=== PATIENT | male | born 1970 | race Caucasian/White ===

== ENCOUNTER 2016-06-18 08:41 | Emergency (ER) | payer SELFPAY ==
[2016-06-18 08:49] VITALS: RESP 18
[2016-06-18] MEDS ORDERED: KETOROLAC 30 MG/ML 1 ML VIAL IVP STA (09:16)
[2016-06-18] MEDS ORDERED: HYDROmorphone 1 MG/ML 1 ML SYRINGE IVP STA (09:16)
--- NOTE | 2016-06-18 09:20 | ED ---
General Adult HPI - General Chief complaint: Extremity Problem,Nontraumatic Stated complaint: Left Foot Pain Time Seen by Provider: 06/18/16 09:12 Source: patient, RN notes reviewed Mode of arrival: EMS Limitations: no limitations - History of Present Illness Initial comments: Patient for 45-year-old male who presents emergency room today by EMS, with chief complaint of increased pain to the left ankle and left foot times one day. He does admit that he started feeling some discomfort in the left ankle and foot yesterday. States greatly increased this morning and was unable to bear weight and ambulate due to the pain. Did not take any pain medicine for this. States never had similar symptoms the past. Denies any history of trauma. Denies any history of gout. Denies any other complaints associated symptoms. Patient denies any recent fever, chills, shortness of breath, chest pain, back pain, abdominal pain, nausea or vomiting, numbness or tingling, dysuria or hematuria, constipation or diarrhea, headaches or visual changes, or any other complaints. - Related Data Previous Rx's Medication Instructions Recorded Hydrocodone/Acetaminophen [Hana 1 each PO Q6HR PRN #15 tab 06/18/16 5-325] Ibuprofen [Motrin] 800 mg PO Q6HR PRN #30 tab 06/18/16 amLODIPine BESYLATE [Norvasc] 5 mg PO DAILY #15 tablet 06/18/16 methylPREDNISolone Dose Pack 4 mg PO DIRECTED #21 package 06/18/16 [Medrol Dose Pack] Allergies Allergy/AdvReac Type Severity Reaction Status Date / Time pistachio nut Allergy Unknown Verified 06/18/16 08:49 Review of Systems ROS Statement: Those systems with pertinent positive or pertinent negative responses have been documented in the HPI. ROS Other: All systems not noted in ROS Statement are negative. Past Medical History Past Medical History: No Reported History History of Any Multi-Drug Resistant Organisms: None Reported Past Surgical History: Orthopedic Surgery Past Psychological History: No Psychological Hx Reported Smoking Status: Current every day smoker Past Alcohol Use History: Occasional Past Drug Use History: None Reported General Exam - General Exam Comments Initial Comments: General: The patient is awake and alert, in no distress, and does not appear acutely ill. Neck: The neck is supple, there is no tenderness or JVD. Cardiovascular: There is a regular rate and rhythm. No murmur, rub or gallop is appreciated. Respiratory: Lungs are clear to auscultation, respirations are non-labored, breath sounds are equal. No wheezes, stridor, rales, or rhonchi. Musculoskeletal: Mild swelling to left ankle area. No redness no erythema no lymphangitic streaking. Patient does have tenderness over the both medial and lateral malleolus. Worse with any movements of plantar or dorsiflexion. Tender palpation over the MTP joint #1. Tender with passive flexion. Sensations are intact with pulses equal bilaterally 2+. Neurological: A&O x 3. CN II-XII intact, There are no obvious motor or sensory deficits. Coordination appears grossly intact. Speech is normal. Skin: Skin is warm and dry and no rashes or lesions are noted. Psychiatric: Normal mood and affect. Limitations: no limitations Course Vital Signs 06/18/16 08:45 Temperature 97.6 F Pulse Rate 74 Respiratory 18 Rate Blood Pressure 174/107 O2 Sat by Pulse 98 Oximetry Medical Decision Making - Medical Decision Making Patient's x-ray reviewed shows no acute fracture dislocation. Results were discussed with patient. Patient's labs been reviewed uric acid 7.7. White count 11.6. No sign of infection. Case discussed in detail with attending physician Dr. Becerril. Patient blood pressure elevated here in the emergency room does not take any medications. States he is feeling better after pain medication given here in the emergency room. Was discussed about gout versus. No sign of infection. Will be started on steroid Dosepak along with anti- inflammatories given a short prescription for Hana to go home with for pain and use as needed. Advised return if any symptoms increase or worsen or for any other concerns. Patient given information follow-up PCP for further evaluation and blood pressure checks. - Lab Data Result diagrams: 06/18/16 09:35 06/18/16 09:35 Lab Results 06/18/16 06/18/16 Range/Units 09:35 09:35 WBC 11.6 H (3.8-10.6) k/uL RBC 5.24 (4.30-5.90) m/uL Hgb 16.7 (13.0-17.5) gm/dL Hct 48.6 (39.0-53.0) % MCV 92.8 (80.0-100.0) fL MCH 31.8 (25.0-35.0) pg MCHC 34.3 (31.0-37.0) g/dL RDW 13.7 (11.5-15.5) % Plt Count 196 (150-450) k/uL Neutrophils % 78 % Lymphocytes % 12 % Monocytes % 6 % Eosinophils % 2 % Basophils % 1 % Neutrophils # 9.0 H (1.3-7.7) k/uL Lymphocytes # 1.4 (1.0-4.8) k/uL Monocytes # 0.7 (0-1.0) k/uL Eosinophils # 0.2 (0-0.7) k/uL Basophils # 0.1 (0-0.2) k/uL Sodium 137 (137-145) mmol/L Potassium 4.5 (3.5-5.1) mmol/L Chloride 99 (98-107) mmol/L Carbon Dioxide 26 (22-30) mmol/L Anion Gap 12 mmol/L BUN 12 (9-20) mg/dL Creatinine 1.22 (0.66-1.25) mg/dL Est GFR (MDRD) Af Amer >60 (>60 ml/min/1.73 sqM) Est GFR (MDRD) Non-Af >60 (>60 ml/min/1.73 sqM) Glucose 120 H (74-99) mg/dL Uric Acid 7.7 (3.5-8.5) mg/dL Calcium 9.7 (8.4-10.2) mg/dL Total Bilirubin 1.3 (0.2-1.3) mg/dL AST 35 (17-59) U/L ALT 43 (21-72) U/L Alkaline Phosphatase 86 (38-126) U/L Total Protein 7.8 (6.3-8.2) g/dL Albumin 4.3 (3.5-5.0) g/dL Disposition Clinical Impression: Gout Disposition: HOME SELF-CARE Condition: Good Instructions: Gout (ED) Additional Instructions: Prescriptions: Hydrocodone/Acetaminophen [Hana 5-325] 1 each PO Q6HR PRN #15 tab PRN Reason: Pain Ibuprofen [Motrin] 800 mg PO Q6HR PRN #30 tab PRN Reason: Pain amLODIPine BESYLATE [Norvasc] 5 mg PO DAILY #15 tablet methylPREDNISolone Dose Pack [Medrol Dose Pack] 4 mg PO DIRECTED #21 package Referrals: None,Stated [Primary Care Provider] - 1-2 days Marc Mccallum MD [REFERRING] - 1-2 days Sulma Gordon MD [STAFF PHYSICIAN] - 1-2 days Time of Disposition: 10:32
[2016-06-18] MEDS ORDERED: KETOROLAC 60 MG/2 ML VIAL IVP STA (09:28)
[2016-06-18 09:51] LABS: Basophils # (A) 0.1 k/uL (0-0.2); Basophils % (A) 1 %; CHCM 34.6; Eosinophils # (A) 0.2 k/uL (0-0.7); Eosinophils % (A) 2 %; HCT 48.6 % (39.0-53.0); HDW 2.34; HGB 16.7 gm/dL (13.0-17.5); Luc # (Auto) 0.22; Luc % (Auto) 2; Lymphocytes # (A) 1.4 k/uL (1.0-4.8); Lymphocytes % (A) 12 %; MCH 31.8 pg (25.0-35.0); MCHC 34.3 g/dL (31.0-37.0); MCV 92.8 fL (80.0-100.0); Monocytes # (A) 0.7 k/uL (0-1.0); Monocytes % (A) 6 %; Neutrophils % (A) 78 %; RBC 5.24 m/uL (4.30-5.90); RDW 13.7 % (11.5-15.5); WBC 11.6 k/uL (3.8-10.6); WBC (Perox) 11.83
[2016-06-18 10:02] LABS: ALT 43 U/L (21-72); AST 35 U/L (17-59); Alkaline Phosphatase 86 U/L (38-126); Anion Gap 12 mmol/L; Blood Urea Nitrogen 12 mg/dL (9-20); Calcium 9.7 mg/dL (8.4-10.2); Carbon Dioxide 26 mmol/L (22-30); Chloride 99 mmol/L (98-107); Glucose 120 mg/dL (74-99); Non-African American GFR(MDRD) >60 (>60 ml/min/1.73 sqM); Potassium 4.5 mmol/L (3.5-5.1); Sodium 137 mmol/L (137-145); Total Bilirubin 1.3 mg/dL (0.2-1.3); Total Protein 7.8 g/dL (6.3-8.2); Uric Acid 7.7 mg/dL (3.5-8.5)
--- NOTE | 2016-06-18 10:19 | XR ---
Left ankle HISTORY: Pain 3 views of the left ankle There is soft tissue swelling. Ossific density distal to the medial malleolus is well-corticated and not felt likely to be acute. Alignment and bone mineralization, joint spaces are maintained. Calcific ation present at the insertion of the Achilles tendon. Possible ankle joint effusion. Spurring at the intertarsal joints. IMPRESSION: No acute abnormality.
[2016-06-18 10:34] VITALS: BP 189/99; PULSE 68; TEMP 97.9
== END 2016-06-18 10:53 | disposition home or self-care (01) ==
LOC: EC 08:41
DX: M10.9 Gout, unspecified (principal); F17.200 Nicotine dependence, unspecified, uncomplicated; Z91.018 Allergy to other foods
CPT/HCPCS: 99284; 96374; 96375; 36415; 80053; 84550; 85025; 73610; J1885; J1170